=== PATIENT | male | born 1935 | race Caucasian/White ===

== ENCOUNTER 2017-03-10 06:47 | Day surgery (SDC) | payer MEDICARE, BC ==
[~2017-03-10 06:47] MED LIST: RINGERS SOLUTION,LACTATED 1,000 ML IV PRN
--- OUTSIDE RECORDS SUMMARY | 2017-03-10 06:50 | XMS REPORT | Continuity of Care Document ---
:1935 Author Organization [facility] ([facility]) Address [address] [place] [address] Phone [phone] Care Team Providers Name Role Phone Yovanny Javier Primary Care Provider [phone] Source Comments This disclosure is being made pursuant to the Care Everywhere program, applicable federal and state laws, and may not contain all informaitonavailable regarding this patient.[facility] ([facility]) Active Allergies and Adverse Reactions No Known Allergies Current Medications Prescription Sig. Disp. Refills Start Date End Date Status ATENOLOL PO Take 50 mg by mouth daily. Active simvastatin 40 mg Take 40 mg by mouth every Active tablet evening. Indications: Hypercholesterolemia allopurinol 300 mg Take 300 mg by mouth Active tablet daily. Indications: Gout aspirin 81 mg Take 81 mg by mouth daily. Active tablet indomethacin 50 mg Take 50 mg by mouth daily. Active capsule Indications: Gout MG Take by mouth as needed. Active TRISILICATE/ALH/NA HCO3/AA (GAVISCON PO) HYDROcodone-acetam Take 1-2 Tabs by mouth 30 Tab 0 08/18/2011 Active inophen 5-500 mg every 4 hours as needed per tablet for Pain. 1-2 tablets every 4-6 hours as needed for pain. The maximum daily intake of acetaminophen from all sources should not exceed 4000 mg Indications: Pain tobramycin-dexamet instill onto the left eye 1 Tube 3 08/19/2011 Active hasone (TOBRADEX) 4 times daily. 0.3-0.1 % Indications: Ocular ophthalmic Inflammation ointment scopolamine instill 1 Drop onto the Active (ISOPTO HYOSCINE) left eye 3 times daily. 0.25 % ophthalmic solution TOBRAMYCIN Instill onto the eye 2 Active SULF/DEXAMETHASONE times daily. OS (TOBRADEX OPHTH) Active Problems Problem Noted Date Hypertension 08/03/2011 Gout 08/03/2011 Hyperlipidemia 08/03/2011 Osteoarthritis 08/03/2011 Social History Tobacco Use Types Packs/Day Years Used Date Never Smoker Smokeless Tobacco: Never Used Alcohol Use Drinks/Week oz/Week Comments No Last Filed Vital Signs Vital Sign Reading Time Taken Blood Pressure 112/82 08/18/2011 11:15 AM CDT Pulse 56 08/18/2011 11:15 AM CDT Temperature 36.1 C (97 F) 08/18/2011 11:15 AM CDT Respiratory Rate 18 08/18/2011 11:15 AM CDT Height 1.803 m (5' 11") 08/03/2011 10:59 AM CDT Weight 83.915 kg (185 lb) 08/03/2011 10:59 AM CDT Body Mass Index 25.81 08/03/2011 10:59 AM CDT Oxygen Saturation 98% 08/18/2011 6:53 AM CDT Plan of Care Health Maintenance Due Date Last Done Comments Hepatitis B Vaccine (1 of 3 - Primary Series) 1935 Tdap Vaccine 1945 Lipid Disorder Screening 1952 Td Vaccine 1953 Colonoscopy 12/17/1984 Zoster Vaccine 1994 Pneumococcal Vaccine (1 of 2 - PCV13) 1999 Influenza Vaccine: Seasonal (#1) 06/15/2016 Results from Last 3 Months Not on file
[2017-03-10] MEDS ORDERED: RINGERS SOLUTION,LACTATED 1,000 ML IV ONE (07:20)
[2017-03-10] MEDS ORDERED: RINGERS SOLUTION,LACTATED 1,000 ML IV PRN (08:29)
[2017-03-10] MEDS ORDERED: PANTOPRAZOLE SODIUM 40 MG in NORMAL SALINE 100 ML IV ONE (08:29)
[2017-03-10] MEDS ORDERED: PANTOPRAZOLE SODIUM 40 MG/100 ML PIGGYBACK IV ONE (08:36)
[2017-03-10 09:18] VITALS: BP 120/78
--- NOTE | 2017-03-10 17:15 | OR ---
Operative Report - Dictated Report Narrative: Operative Report Date of operation 03/10/2017 Preoperative diagnosis: Dysphagia, esophageal stenosis Postoperative diagnosis: Severe esophagitis with ulcers. Hiatal hernia. Gastropathy. Duodenitis (pathology and CLOtest pending) Operation: EGD with biopsies. Esophageal balloon dilation to 20 mm Surgeon: Dr Morataya Anesthesia: [employer] Indications for procedure: The patient is an 81-year-old male referred by Dr. Doshi. He has a long history of dysphagia for solid food. He has had a previous EGD for foreign body removal. Recent esophagram revealed distal esophageal irregularity with narrowing Findings: Severe esophagitis with linear ulcerations and edema at the GE junction. Hiatal hernia. Gastropathy. Duodenitis Narrative of procedure: The patient was identified preoperatively, and prior to the administration of anesthetic a multidisciplinary timeout was observed With the patient in the recumbent position, a bite-block was placed, intravenous sedation was administered, and the patient's eyes covered with a towel. The flexible fiberoptic gastroscope was advanced into the posterior pharynx which appeared normal. The supraglottic larynx appeared normal. The cords moved well, and opposed in the midline. There was a nodule on the posterior one third of the right vocal cord without ulceration. The scope was advanced under direct vision into the proximal esophagus which appeared normal. The esophagus appeared freely distensible with normal mucosa in the proximal two thirds. There was severe inflammation in the distal third of the esophagus with linear ulcers and marked edema at the GE junction with narrowing. There was a sliding axial hiatal hernia. The scope was advanced into the stomach proper which was insufflated with air. There was a chronic appearing weber gastric erythema but no fernando ulcers or neoplastic lesions were appreciated including a retroflexed view of the gastric fundus which also demonstrated the hiatal hernia. The scope was redirected toward the pylorus which was patent. The scope was advanced into the duodenal bulb which was erythematous with friability but no fernando ulcers. The scope was advanced further to the horizontal portion of the duodenum which appeared normal, specifically the villous architecture appeared well preserved and clear bile was present. The scope was slowly withdrawn through the duodenal bulb with confirmation that no active ulcer was present. The scope was withdrawn into the stomach and sales representative facility services biopsies of gastric mucosa obtained for CLOtest and pathology. The biopsy sites were seen to be hemostatic. A balloon dilator was deployed in the stomach and then withdrawn to lie across the GE junction which was dilated to 20 mm. Biopsies were obtained of the distal esophagus. The biopsy sites were seen to be hemostatic. The GE junction appeared widely patent. The insufflated air was removed from the stomach, the scope withdrawn from the patient, and the procedure terminated. The patient tolerated the anesthetic and procedure well without complication and was transferred back to the ambulatory surgery area awake and in stable condition. The patient remained stable throughout a period of postoperative observation, was able to tolerate by mouth intake, and was up without assistance. I shared the operative findings with him and his , and he was given copies of the photographs which appear in the medical record. He was given a single dose of Protonix 40 mg IV prior to discharge. He was discharged home with instructions not to engage in hazardous activity today, but may return to normal activity tomorrow and advance diet as tolerated. He is to discontinue Meloxicam, however is to continue his other medications as listed in the history and physical exam. I made arrangements to contact the patient with biopsy reports and will make further recommendation based upon that result. Reviewed and electronically signed
== END 2017-03-10 06:48 | disposition home or self-care (01) ==
LOC: AMB 06:47
PROVIDERS: ATTEND Surgery
PROC: 0DB58ZX Excision of Esophagus, Via Natural or Artificial Opening Endoscopic, Diagnostic (ICD-10-PCS; 2017-03-10)
PROC: 0DB48ZX Excision of Esophagogastric Junction, Via Natural or Artificial Opening Endoscopic, Diagnostic (ICD-10-PCS; 2017-03-10)
PROC: 0DB68ZX Excision of Stomach, Via Natural or Artificial Opening Endoscopic, Diagnostic (ICD-10-PCS; 2017-03-10)
PROC: 0D758ZZ Dilation of Esophagus, Via Natural or Artificial Opening Endoscopic (ICD-10-PCS; 2017-03-10)
PROC: 0DB98ZX Excision of Duodenum, Via Natural or Artificial Opening Endoscopic, Diagnostic (ICD-10-PCS; principal; 2017-03-10 08:00)
DX: K22.10 Ulcer of esophagus without bleeding (principal); K22.2 Esophageal obstruction; K44.9 Diaphragmatic hernia without obstruction or gangrene; K29.70 Gastritis, unspecified, without bleeding; I10 Essential (primary) hypertension; E78.5 Hyperlipidemia, unspecified; Z87.891 Personal history of nicotine dependence; Z68.26 Body mass index [BMI] 26.0-26.9, adult